=== PATIENT | male | born 1950 | race Caucasian/White ===

== ENCOUNTER 2017-01-14 07:34 | Day surgery (SDC) | payer BC ==
[~2017-01-14 07:34] MED LIST: MIDAZOLAM 2 MG/2 ML SOL ONE
[2017-01-14] MEDS ORDERED: PROPARACAINE HCL 0.5% OPHTHALMIC SOL ONE (07:41)
[2017-01-14] MEDS ORDERED: ACETAZOLAMIDE 500 MG CER ONE (07:41)
[2017-01-14] MEDS ORDERED: KETOROLAC 0.5% OPTH 60 DROP SOL ONE (07:41)
[2017-01-14] MEDS ORDERED: PHENYLEPHRINE HCL 10% OPHTHAL SOL ONE (07:41)
[2017-01-14] MEDS ORDERED: CYCLOPENTOLATE 1% SOL ONE (07:41)
[2017-01-14] MEDS ORDERED: ACETAZOLAMIDE 500 MG CER PO ONE (07:50)
[2017-01-14 07:53] VITALS: O2SAT 97
[2017-01-14] MEDS ORDERED: PROPARACAINE HCL 0.5% OPHTHALMIC SOL LEFTEYE ONE ×2 (07:55→08:07)
[2017-01-14] MEDS ORDERED: CYCLOPENTOLATE 1% SOL LEFTEYE ONE ×2 (07:56→08:07)
[2017-01-14] MEDS ORDERED: PHENYLEPHRINE HCL 10% OPHTHAL SOL LEFTEYE ONE ×2 (07:56→08:07)
[2017-01-14] MEDS ORDERED: KETOROLAC 0.5% OPTH 60 DROP SOL LEFTEYE ONE ×2 (07:56→08:07)
[2017-01-14] MEDS ORDERED: POVIDONE IODINE 5% SOL ONE (08:57)
[2017-01-14] MEDS ORDERED: LIDOCAINE HCL 1% MPF SOL ONE (08:57)
[2017-01-14] MEDS ORDERED: BSS 500 ML 500 ML IR ONE (08:57)
[2017-01-14 09:33] VITALS: BP 155/86; PULSE 63; RESP 12; TEMP 98.1
== END 2017-01-14 09:57 | disposition home or self-care (01) ==
LOC: SURG 07:34
PROVIDERS: ATTEND Ophthalmology
DX: H25.9 Unspecified age-related cataract (principal)
CPT/HCPCS: 66984; J2001; J2250